=== PATIENT | male | born 1990 | race Caucasian/White ===

== ENCOUNTER 2024-02-21 16:05 | Emergency (ER) | payer OTHER ==
[~2024-02-21] VITALS: Ht 172.7 cm; Wt 111.1 kg
[2024-02-21] MEDS ORDERED: HYDR-4209 PO (19:15)
[2024-02-21] MEDS: IBUPROFEN 600 MG TABLET PO ONE (19:15)
[2024-02-21] MEDS ORDERED: CYCL10TA9 PO (19:15)
[2024-02-21] MEDS ORDERED: IBUPROFEN 600 MG TABLET ONE (20:13)
[2024-02-21 23:34] VITALS: BP 135/85; TEMP 97.7; O2SAT 97
== END 2024-02-21 21:00 | disposition home or self-care (01) ==
LOC: ER 16:07
DX: M54.6 Pain in thoracic spine (principal); M54.50 Low back pain, unspecified; Z79.891 Long term (current) use of opiate analgesic; W18.39XA Other fall on same level, initial encounter; Y93.89 Activity, other specified; Y92.89 Other specified places as the place of occurrence of the external cause; Y99.8 Other external cause status
CPT/HCPCS: 72072; 72100; A4606; A4663